=== PATIENT | male | born 1995 ===

== ENCOUNTER 2016-08-03 05:23 | Emergency (ER) | payer OTHER ==
[2016-08-03] MEDS ORDERED: DUONEB 0.5 MG-3 MG/3 ML SOLN IH ONE (05:39)
[2016-08-03] MEDS ORDERED: DECADRON IM ONE (06:46)
--- NOTE | 2016-08-03 06:51 | Emergency Department Report ---
- General Chief Complaint: Upper Respiratory Infection Stated Complaint: SHORTNESS OF BREATH, CHEST PAIN AND COUGH Time Seen by Provider: 08/03/16 06:45 Source: patient, family Mode of arrival: Ambulatory Limitations: No Limitations - History of Present Illness Initial Comments: 21-year-old male presents to emergency room with a cough and congestion for last few days. Patient denies history of asthma. Denies any fever or chest pain. MD Complaint: cough (dry), nasal congestion, sinus pain -: Gradual, days(s) (2) Severity: moderate Severity scale (0 -10): 3 Quality: dull Consistency: constant Improves With: nothing Worsens With: activity, deep breaths Associated Symptoms: cough, shortness of breath Treatments Prior to Arrival: none - Related Data Previous Rx's Medication Instructions Recorded Last Taken Type Azithromycin [Zithromax Z-SANTOS] 0 mg PO DAILY #1 pack 08/03/16 Unknown Rx Cetirizine HCl [ZyrTEC] 10 mg PO DAILY #20 capsule 08/03/16 Unknown Rx predniSONE [Deltasone] 20 mg PO QDAY #10 tab 08/03/16 Unknown Rx Allergies Allergy/AdvReac Type Severity Reaction Status Date / Time No Known Allergies Allergy Unverified 08/03/16 05:38 ED Review of Systems ROS: Stated complaint: SHORTNESS OF BREATH, CHEST PAIN AND COUGH Other details as noted in HPI Comment: All other systems reviewed and negative Constitutional: denies: chills, fever Eyes: denies: eye pain, eye discharge, vision change ENT: denies: ear pain, throat pain Respiratory: see HPI, cough, shortness of breath. denies: wheezing Cardiovascular: denies: chest pain, palpitations Endocrine: no symptoms reported Gastrointestinal: denies: abdominal pain, nausea, diarrhea Genitourinary: denies: urgency, dysuria Musculoskeletal: denies: back pain, joint swelling, arthralgia Skin: denies: rash, lesions Neurological: denies: headache, weakness, paresthesias Psychiatric: denies: anxiety, depression Hematological/Lymphatic: denies: easy bleeding, easy bruising ED Past Medical Hx - Past Medical History Previous Medical History?: No - Surgical History Past Surgical History?: No - Family History Family history: no significant - Social History Smoking Status: Never Smoker Substance Use Type: None - Medications Home Medications: Home Medications Medication Instructions Recorded Confirmed Last Taken Type Azithromycin [Zithromax Z-SANTOS] 0 mg PO DAILY #1 pack 08/03/16 Unknown Rx Cetirizine HCl [ZyrTEC] 10 mg PO DAILY #20 capsule 08/03/16 Unknown Rx predniSONE [Deltasone] 20 mg PO QDAY #10 tab 08/03/16 Unknown Rx ED Physical Exam - General Limitations: No Limitations General appearance: alert, in no apparent distress - Head Head exam: Present: atraumatic, normocephalic, other (mild bilateral frontal sinus tenderness) - Eye Eye exam: Present: normal appearance - ENT ENT exam: Present: normal exam, normal orophraynx, mucous membranes moist, TM's normal bilaterally - Neck Neck exam: Present: normal inspection, full ROM - Respiratory Respiratory exam: Present: normal lung sounds bilaterally, wheezes (very mild difuse). Absent: respiratory distress, chest wall tenderness, accessory muscle use, decreased breath sounds, prolonged expiratory - Cardiovascular Cardiovascular Exam: Present: regular rate, normal rhythm. Absent: systolic murmur, diastolic murmur, rubs, gallop - GI/Abdominal GI/Abdominal exam: Present: soft, normal bowel sounds - Rectal Rectal exam: Present: deferred - Extremities Exam Extremities exam: Present: normal inspection - Back Exam Back exam: Present: normal inspection, full ROM - Neurological Exam Neurological exam: Present: alert, oriented X3 - Psychiatric Psychiatric exam: Present: normal affect, normal mood - Skin Skin exam: Present: warm, dry, intact, normal color. Absent: rash ED Course Vital Signs 08/03/16 05:30 Temperature 98.9 F Pulse Rate 96 H Respiratory 20 Rate Blood Pressure 119/77 Blood Pressure 119/77 [Left] O2 Sat by Pulse 97 Oximetry - Reevaluation(s) Reevaluation #1: Patient feeling much better after given a DuoNeb treatment and Decadron injection. Denies any chest pain ,shortness of breath or wheezing. Vital signs stable. 08/03/16 0700. Critical Care Time: No Critical care attestation.: If time is entered above; I have spent that time in minutes in the direct care of this critically ill patient, excluding procedure time. ED Disposition Clinical Impression: Bronchitis, acute, with bronchospasm, Acute rhinitis Acute sinusitis Qualifiers: Sinusitis location: frontal Recurrence: non-recurrent Qualified Code(s): J01.10 - Acute frontal sinusitis, unspecified Disposition: DISCHARGED TO HOME OR SELFCARE Is pt being admited?: No Does the pt Need Aspirin: No Condition: Good Instructions: Acute Bronchitis (ED) Prescriptions: Azithromycin [Zithromax Z-SANTOS] 0 mg PO DAILY #1 pack Cetirizine HCl [ZyrTEC] 10 mg PO DAILY #20 capsule predniSONE [Deltasone] 20 mg PO QDAY #10 tab Referrals: PRIMARY CARE, [Primary Care Provider] - 3-5 Days
[2016-08-03 07:13] VITALS: BP 129/70
== END 2016-08-03 07:13 | disposition home or self-care (01) ==
LOC: ED 05:23
DX: J20.9 Acute bronchitis, unspecified (principal); J00 Acute nasopharyngitis [common cold]; J01.10 Acute frontal sinusitis, unspecified
CPT/HCPCS: 94640; 96372; 99282; J1100